=== PATIENT | female | born 1965 | race African-American/Black ===

== ENCOUNTER 2017-06-15 00:17 | Emergency (ER) | payer MEDICAID, OTHER ==
[~2017-06-15] VITALS: Ht 172.7 cm; Wt 91.2 kg
[~2017-06-15 00:17] MED LIST: LISINOPRIL
[2017-06-15] MEDS ORDERED: ONDANSETRON HCL 4MG/2ML VIAL IV STA (03:57)
[2017-06-15] MEDS ORDERED: SODIUM CHLORIDE 0.9% 1,000 ML IV ONE (03:57)
[2017-06-15] MEDS ORDERED: MORPHINE SULFATE 4 MG/ML CPJ (NOT FOR IM USE) IV STA (03:57)
[2017-06-15 04:39] LABS: BASOPHILS % 0.7 % (0.0-2.0); EOSINOPHILS % 1.7 % (0.0-5.0); HEMATOCRIT. 38.6 % (36.0-48.0); HEMOGLOBIN. 12.8 g/dL (12.0-16.0); MEAN CORPUSCULAR HEMOGLOBIN 27.3 pg (28.0-32.0); MEAN CORPUSCULAR VOLUME 82.4 fL (81.0-99.0); MEAN PLATELET VOLUME 8.3 fl (7.4-10.4); MONOCYTES % 8.4 % (2.0-8.0); NEUTROPHILS % 46.2 % (40.0-76.0); PLATELET 234 x1000/uL (130-400); RED BLOOD CELL COUNT 4.68 mill/uL (4.2-5.4); RED CELL DISTRIBUTION WIDTH 13.4 % (11.6-14.6)
[2017-06-15 04:57] LABS: CARBON DIOXIDE 28 mEq/L (21-32); CHLORIDE 107 mEq/L (98-107); TROPONIN I < 0.02 ng/mL (0.00-0.04)
[2017-06-15 09:30] VITALS: BP 185/118
[2017-06-15] MEDS ORDERED: IOHEXOL-350 100 ML BOTTLE ONE (12:45)
[2017-06-15] MEDS ORDERED: SODIUM CHLORIDE 0.9% 10ML VIAL ONE (12:45)
== END 2017-06-15 12:00 | disposition home or self-care (01) ==
LOC: ER 00:21
DX: R07.89 Other chest pain (principal); I10 Essential (primary) hypertension; Z90.710 Acquired absence of both cervix and uterus; Z98.890 Other specified postprocedural states; Z85.028 Personal history of other malignant neoplasm of stomach
CPT/HCPCS: 36415; 71010; 71275; 80053; 84484; 85025; 93005; 96361; 96374; 96375; 99285; A4216; J2270; J2405; J7030; Q9967; Z7610

== ENCOUNTER 2017-07-09 07:05 | Emergency (ER) | payer MEDICAID ==
[~2017-07-09] VITALS: Ht 172.7 cm; Wt 92.0 kg
[2017-07-09] MEDS ORDERED: KETOROLAC 30MG/ML VIAL IV STA (09:14)
[2017-07-09] MEDS ORDERED: SODIUM CHLORIDE 0.9% 1,000 ML IV ONE (09:14)
[2017-07-09 09:37] LABS: BASOPHILS % 0.9 % (0.0-2.0); EOSINOPHILS % 0.7 % (0.0-5.0); HEMATOCRIT. 40.5 % (36.0-48.0); HEMOGLOBIN. 13.6 g/dL (12.0-16.0); LYMPHOCYTES % 26.1 % (20.0-50.0); MEAN CORPUSCULAR HEMOGLOBIN 27.7 pg (28.0-32.0); MEAN CORPUSCULAR VOLUME 82.6 fL (81.0-99.0); MEAN PLATELET VOLUME 8.3 fl (7.4-10.4); MONOCYTES % 8.4 % (2.0-8.0); NEUTROPHILS % 63.9 % (40.0-76.0); PLATELET 240 x1000/uL (130-400); RED CELL DISTRIBUTION WIDTH 13.7 % (11.6-14.6)
[2017-07-09 09:46] LABS: PROTHROMBIN TIME 10.5 sec (9.4-11.6)
[2017-07-09 09:53] LABS: CARBON DIOXIDE 30 mEq/L (21-32); CHLORIDE 104 mEq/L (98-107)
[2017-07-09] MEDS ORDERED: MORPHINE SULFATE 4 MG/ML CPJ (NOT FOR IM USE) IV ONE (11:30)
[2017-07-09] MEDS ORDERED: ONDANSETRON HCL 4MG/2ML VIAL IV ONE (12:45)
[2017-07-09 13:15] VITALS: BP 156/94
== END 2017-07-09 13:29 | disposition home or self-care (01) ==
LOC: ER 07:35
DX: B02.29 Other postherpetic nervous system involvement (principal); B02.9 Zoster without complications; I10 Essential (primary) hypertension; Z90.710 Acquired absence of both cervix and uterus; Z98.890 Other specified postprocedural states
CPT/HCPCS: 36415; 80053; 83690; 85025; 85610; 96361; 96374; 96375; 99285; J1885; J2270; J2405; J7030; Z7610

== ENCOUNTER 2018-02-09 12:34 | Emergency (ER) | payer MEDICAID ==
[~2018-02-09] VITALS: Ht 172.7 cm; Wt 99.0 kg
[2018-02-09 15:37] VITALS: BP 160/98
== END 2018-02-09 15:40 | disposition home or self-care (01) ==
LOC: ER 14:18
DX: H01.003 Unspecified blepharitis right eye, unspecified eyelid (principal); I10 Essential (primary) hypertension; Z85.9 Personal history of malignant neoplasm, unspecified; Z90.710 Acquired absence of both cervix and uterus
CPT/HCPCS: 99283